=== PATIENT | male | born 1985 | race Caucasian/White ===

== ENCOUNTER 2024-06-17 04:53 | Emergency (ER) | payer MEDICAID, SELFPAY ==
[2024-06-17 04:57] VITALS: PULSE 92; RESP 18; O2SAT 96; BMI 23.3
[2024-06-17 05:01] VITALS: BP 119/81; PULSE 71; RESP 26; O2SAT 93
[2024-06-17 05:05] VITALS: BP 119/81; PULSE 83; RESP 20; TEMP 36.8; O2SAT 96
--- NOTE | 2024-06-17 05:23 | XR_ITS ---
Examination: AP chest single view Technique one AP portable semiupright chest single view Exam date and time: June 17, 2024 0530 hrs. Comparison the 2021 Indications: Seizure today. Findings: Normal heart size No aspiration pneumonia The osseous structures are intact Impression: No aspiration pneumonia
--- NOTE | 2024-06-17 05:23 | PD.EDRME ---
Rapid Medical Screening Exam RME Arrival date/time: 06/17/24 04:53 Chief Complaint: Seizure Time Seen by Provider: 06/17/24 05:14 Vital signs: Vital Signs Temperature 98.2 F 06/17/24 05:05 Pulse Rate 83 06/17/24 05:05 Respiratory Rate 20 06/17/24 05:05 Blood Pressure 119/81 06/17/24 05:05 Pulse Oximetry (%) 96 06/17/24 05:05 Oxygen Delivery Method Room Air 06/17/24 05:05 RME Narrative: 38yo male with a history of alcohol abuse BIBA from home presents to the ED for a possible seizure. Patient's at bedside states the patient woke up from his sleep talking about heaven , reporting after he fell backwards on the bed and started seizing. Patient stopped drinking 3 days ago. Denies any tongue biting, incontinence or injuries. Orders are placed. Patient will be seen by an additional provider.
[2024-06-17] MEDS: THIAMINE INJ 100 MG/ML VIAL 2 ML IVP (05:41)
[2024-06-17] MEDS: FOLIC ACID INJ 1 MG/0.2 ML IVP (05:42)
[2024-06-17] MEDS: LORazepam 2 MG/ML VIAL IVP (05:42)
[2024-06-17] MEDS: chlordiazePOXIDE HCl 25 MG CAPSULE PO (05:42)
[2024-06-17 06:00] VITALS: BP 109/73; PULSE 76; RESP 17; O2SAT 92
[2024-06-17 06:02] LABS: Basophils # (Auto) 0.1 Thou/mm3 (0.0-0.2); Basophils % (Auto) 1 % (0-2.5); Eosinophils # (Auto) 0.3 Thou/mm3 (0.0-0.5); Eosinophils % (Auto) 3 % (0-10); Hematocrit 43.3 % (41.0-53.0); Hemoglobin 14.6 g/dL (13.5-16.0); Immature Granulocytes % (Auto) 0 % (0-0); Immature Granulocytes Auto 0.03 Thou/mm3 (0.00-0.00); Lymphocytes # (Auto) 3.6 Thou/mm3 (1.0-4.8); Lymphocytes % (Auto) 40 % (10-50); Mean Corpuscular HGB Conc 33.7 g/dl (31.0-37.0); Mean Corpuscular Hemoglobin 32.9 pg (25.0-35.0); Mean Corpuscular Volume 98 fL (80-100); Monocytes # (Auto) 0.7 Thou/mm3 (0.0-0.8); Monocytes % (Auto) 8 % (0-12); Neutrophils # (Auto) 4.5 Thou/mm3 (1.8-7.7); Neutrophils % (Auto) 49 % (37-80); Nucleated Red Blood Cell % 0 /100 WBC (0); Platelet Count 260 Thou/mm3 (140-440); RDW Standard Deviation 56.1 fL (35.1-43.9); Red Blood Count 4.44 Miln/mm3 (4.50-5.90); White Blood Count 9.2 Thou/mm3 (3.8-10.6)
[2024-06-17 06:14] LABS: Base Excess, Venous 3 (-3-3); O2 Saturation, Venous 62 % (96-97); PCO2, Venous 49 mmHg (36-56); PO2, Venous 33 mmHg (15-58); pH, Venous 7.39 (7.33-7.66)
--- NOTE | 2024-06-17 06:21 | PD.EDSEIZ ---
ED Seizures RME/HPI General Chief Complaint: Seizure Stated Complaint: SEIZURES Time Seen by Provider: 06/17/24 05:14 Arrival date/time: 06/17/24 04:53 RME / HPI RME / HPI Narrative: 38yo male with a history of alcohol abuse BIBLuis F from home presents to the ED for a possible seizure. Patient's at bedside states the patient woke up from his sleep talking about heaven , reporting after he fell backwards on the bed and started seizing. Patient stopped drinking 3 days ago. Denies any tongue biting, incontinence or injuries. Orders are placed. Patient will be seen by an additional provider. DR. ELIAS MAIN ED EVALUATION: 38 year old male with past medical history significant for alcoholism and gastritis presents to the Emergency Department BIBA with complaint of a seizure-like activity witnessed by . Patient states he stopped drinking 3 days ago and he drinks a pint of fireball a day. Patient mentions in past he has seizures if he stops drinking. Denies any seizure medications. Patient is not postictal at this time. No tongue bite, incontinence, injuries, or other symptoms at this time. States his doctor told him to stop drinking in order to receive treatment for STD. Related Data Home Medications ?Medication ?Instructions ?Recorded ?Confirmed trazodone 100 mg tablet 100 mg PO QDAY 01/28/24 01/29/24 Previous Rx's ?Medication ?Instructions ?Recorded folic acid 1 mg tablet 1 mg PO BID #60 tabs 01/31/24 levetiracetam 250 mg tablet 500 mg (2 x 250 mg) PO BID #60 tabs 01/31/24 naltrexone 50 mg tablet 25 mg (1/2 x 50 mg) PO QDAY #30 01/31/24 tabs thiamine mononitrate (vit B1) 100 100 mg PO BID #60 tabs 01/31/24 mg tablet Allergies Allergy/AdvReac Type Severity Reaction Status Date / Time No Known Allergies Allergy Verified 01/28/24 05:33 Review of Systems Review of Systems Systems Reviewed: All systems reviewed, normal except as documented Narrative Review of Systems: GEN: No fever, no chills, no weight loss EYES: No discharge, no visual changes, no pain HEENT: No ear pain, no congestion, no sore throat PULM: No shortness of breath, no cough, no congestion CV: No chest pain, no dyspnea on exertion, no palpitations GI: No nausea, no vomiting, no diarrhea, no pain, no constipation : No frequency, no urgency and no dysuria MUSC/SKEL: No joint pain, no back pain SKIN: No rash PSYCH: No hallucinations, no depression HEME/LYMPH: No easy bleeding or bruising tendencies NEURO: No weakness, no headache, + seizure (see HPI) Past Medical History Past Medical History NEUROLOGIC: Positive Neurological Disorders and Seizures GASTROINTESTINAL: Positive Gastrointestinal Disorders, Cirrhosis, Gastrointestinal Bleed, Ulcer and Gastroesophageal Reflux Disease PSYCHO/SOCIAL: Positive Recreational Drug Use and Behavior Problems OTHER HISTORY: Positive Hospitalization and Chicken Pox Family History FAMILY HISTORY: Positive Family Cancer; Negative Family Psychiatric Problems, Family Respiratory Disorders, Family Cardiac Disorders, Family Gastrointestinal Problems, Family Surgery or Family Anesthesia Reaction Surgical History SURGICAL: Positive Oral Surgery and Throat Surgery; Negative Cardiac Surgery, Pacemaker, Endocrine Surgery or Joint Replacement Social History SMOKING STATUS: Never smoker SECOND HAND EXPOSURE: No SUBSTANCE USE: does not use ALCOHOL: Never ED Exam Narrative Physical exam: GENERAL APPEARANCE: alert and oriented x 4, well-developed, well-nourished, no acute distress VITALS: All vitals were reviewed and the pulse ox is 92% on room air, which is hypoxic according to my interpretation. HEENT: Normocephalic, atraumatic; pupils equal, round, reactive to light; EOMI; mucous membranes pink, moist; oropharynx clear NECK: Supple LUNGS: CTABL; no wheezes, no rales, no rhonchi HEART: Regular rate, regular rhythm; normal S1, S2; no murmurs ABDOMEN: non distended; normal BS; soft, no tenderness, no guarding, no rebound; no masses, no organomegaly, no hernia BACK: no CVA tenderness EXTREMITIES: atraumatic; no edema NEUROLOGIC: awake; alert and oriented x4; cranial nerves II-XII grossly intact; no focal sensory or motor deficits PSYCHIATRIC: appropriate mood and affect SKIN: warm, dry, normal color; no rashes Course Course Course Narrative: Per , they need treatment for trichomonas however patient is unable to take the medication due to his alcohol use. Recommend return to PCP for an alternative treatment. Quality Measures none Orders Category Date Time Status EKG (ED ONLY) *Do not use* NOW Care 06/17/24 05:24 Completed CXRP [XR chest 1V portable] Stat Exams 06/17/24 05:23 Completed EKG (ED Only) Stat Exams 06/17/24 05:23 Ordered CBC Stat Lab 06/17/24 05:50 Completed CMP [Comprehensive Metabolic Panel] Stat Lab 06/17/24 05:50 Completed INR [Prothrombin Time with INR] Stat Lab 06/17/24 05:50 Completed Ketone [Beta Hydroxybutyrate] Stat Lab 06/17/24 05:50 Completed Lipase Stat Lab 06/17/24 05:50 Completed Magnesium Stat Lab 06/17/24 05:50 Completed PTT [Partial Thromboplastin Time] Stat Lab 06/17/24 05:50 Completed VBG [Venous Blood Gas] Stat Lab 06/17/24 06:11 Completed Folic Acid Inj Med 06/17/24 05:25 Discontinued 1 mg IVP X1 ONE LORazepam [Ativan Inj] Med 06/17/24 05:25 Discontinued 2 mg IVP X1 ONE Thiamine Inj [Vitamin B-1 Inj] Med 06/17/24 05:25 Discontinued 100 mg IVP X1 ONE chlordiazePOXIDE HCl [Librium] Med 06/17/24 05:25 Discontinued 25 mg PO X1 ONE Vital Signs Vital signs: Vital Signs Pulse Rate 71 06/17/24 05:01 Respiratory Rate 26 H 06/17/24 05:01 Blood Pressure 119/81 06/17/24 05:01 Pulse Oximetry (%) 93 L 06/17/24 05:01 Seizure MDM Narrative MDM Narrative:: ILynn, fabrizio scribing for and in the presence of Dr. Elias. Patient data External records reviewed:: [facility] previous records (Reviewed last admission discharge dated 01/31/24, patient admitted for the following: Acute alcoholic gastritis) and EMS form Clinical information provided by:: patient, EMS and spouse () Social determinants that could affect healthcare access:: alcohol use Patient has the following chronic illnesses:: Alcoholism, gastritis How is presenting disease/condition affected by chronic disease/condition?: exacerbated by Evaluation data The following diagnostics were reviewed and interpreted by me:: lab results and radiology exam(s) Lab and/or radiology exams considered but not ordered:: none Interpretation Summary: Procedure(s): XR chest 1V portable Accession Number(s): [id number] cc: FLAVIO VICENTE PA-C; Joel Rojas MD; Onesimo Wild MD~ Examination: AP chest single view Technique one AP portable semiupright chest single view Exam date and time: June 17, 2024 0530 hrs. Comparison the 2021 Indications: Seizure today. Findings: Normal heart size No aspiration pneumonia The osseous structures are intact Impression: No aspiration pneumonia Dictated By: Joel Rojas MD Medications / Prescriptions Medications or Prescriptions considered but not ordered:: none Medication administrations:: Medication Administration History Discontinued Medications Chlordiazepoxide HCl (Chlordiazepoxide Hcl 25 Mg Capsule) 25 mg PO X1 ONE Stop: 06/17/24 05:26 Last Admin: 06/17/24 05:42 Dose: 25 mg Documented By: EUGENE Folic Acid (Folic Acid Inj 1 Mg/0.2 Ml) 1 mg IVP X1 ONE Stop: 06/17/24 05:26 Last Admin: 06/17/24 05:42 Dose: 1 mg Documented By: EUGENE Lorazepam (Lorazepam 2 Mg/Ml Vial) 2 mg IVP X1 ONE Stop: 06/17/24 05:26 Last Admin: 06/17/24 05:42 Dose: 2 mg Documented By: EUGENE Thiamine HCl (Thiamine Inj 100 Mg/Ml Vial 2 Ml) 100 mg IVP X1 ONE Stop: 06/17/24 05:26 Last Admin: 06/17/24 05:41 Dose: 100 mg Documented By: EUGENE see above Consultations Consultation(s) initiated? (list below): No Diagnosis Seizure Differential Diagnosis: generalized seizure and other (alcohol withdrawal seizure, alcohol abuse) Most likely diagnosis given after review of the tests above:: Witnessed seizure-like activity Alcohol abuse Admission Indicated Admission indicated?: not indicated Admission Request Was there a request for admission?: No Disposition Plan Disposition Plan: Discharge Discharge Attestation Discharge Attestation: The patient and all family members were given an opportunity to ask questions and understood the discharge instructions. Discharge instructions specifically effects, indications for sooner follow up or return to the emergency department, and the expected course of current diagnosis. Patient condition: Stable Discharge Plan Plan Patient Disposition: HOME (Self Care) Prescriptions/Referrals Prescriptions/Med Rec: No Action trazodone 100 mg Tablet 100 mg PO QDAY naltrexone 50 mg tablet 25 mg PO QDAY Qty: 30 0RF folic acid 1 mg Tablet 1 mg PO BID Qty: 60 0RF levetiracetam 250 mg Tablet 500 mg PO BID Qty: 60 0RF thiamine mononitrate (vit B1) 100 mg Tablet 100 mg PO BID Qty: 60 0RF Referrals: Flavio Vicente PA-C [Primary Care Provider] - In 1 week Problem List Clinical Impression: Witnessed seizure-like activity, Alcohol abuse Patient/Caregiver Discharge Instructions Education Materials: ED Seizure, Recurrent (Adult), ED Alcohol Abuse Print Language: Welsh Stand Alone Forms: Dipika Award Info., Patient Portal Info Letter
[2024-06-17 06:23] LABS: Beta Hydroxybutyrate 0.1 mmol/L (<0.6)
[2024-06-17 06:33] LABS: Alanine Aminotransferase 99 U/L (10-49); Albumin, Serum 4.2 gm/dL (3.5-5.0); Albumin/Globulin Ratio 1.6 (1.2-2.2); Alkaline Phosphatase 73 U/L (46-116); Anion Gap 16 (7-16); Aspartate Amino Transferase 204 U/L (0-34); BUN/Creatinine Ratio 8 Ratio (12-20); Bilirubin,Total 0.5 mg/dL (0.3-1.2); Blood Urea Nitrogen 8 mg/dL (9-23); Carbon Dioxide 21.2 mMol/L (20.0-31.0); Chloride 102 mMol/L (98-107); Estimated Creatinine Clearance 92.2 mL/min (>60); Globulin 2.7 gm/dL (2.3-3.5); Glucose 152 mg/dL (74-106); Lipase 78 U/L (12-53); Magnesium 1.9 mg/dL (1.6-2.6); Osmolality,Calculated 278 (275-295); Partial Thromboplastin Time 22.2 Seconds (22.0-36.0); Potassium 3.7 mMol/L (3.4-5.1); Prothrombin Time 10.9 Seconds (9.0-12.2); Sodium 139 mMol/L (136-145); Total Protein 6.9 gm/dL (5.7-8.2); eGFR > 60 See Note
== END 2024-06-17 07:03 | disposition home or self-care (01) ==
PROVIDERS: Emergency Medicine; Emergency Provider Emergency Medicine; PCP Physician Assistant Medical
DX: R56.9 Unspecified convulsions (principal); F10.10 Alcohol abuse, uncomplicated
CPT/HCPCS: 36415; 71045; 80053; 82010; 82803; 83690; 83735; 85025; 85610; 85730; 93005; 96374; 96375; 99284; J2060; J3411; J3490; A9270